=== PATIENT | male | born 1950 | race Caucasian/White ===

== ENCOUNTER 2022-03-31 13:35 | Outpatient (CLI) | payer MEDICARE | END 2022-03-31 13:36 | disposition home or self-care (01) | LOC: BICRAD 13:35 | PROVIDERS: ATTEND Podiatrist | DX: M19.072 Primary osteoarthritis, left ankle and foot (principal) ==

== ENCOUNTER 2023-11-02 05:55 | Day surgery (SDC) | payer MEDICARE ==
[2023-11-02] MEDS ORDERED: Lidocaine 1% (PF) 30 ML VIAL ONE (06:32)
[2023-11-02] MEDS ORDERED: PROPOFOL 40 ML ONE (06:34)
== END 2023-11-02 08:30 | disposition home or self-care (01) ==
LOC: SDC 05:55
PROVIDERS: ATTEND Internal Medicine Cardiovascular Disease
PROC: 5A2204Z Restoration of Cardiac Rhythm, Single (ICD-10-PCS; principal; 2023-11-02)
DX: I48.19 Other persistent atrial fibrillation (principal); Z95.0 Presence of cardiac pacemaker; Z79.01 Long term (current) use of anticoagulants; Z98.890 Other specified postprocedural states; I10 Essential (primary) hypertension; E78.2 Mixed hyperlipidemia; Z95.4 Presence of other heart-valve replacement; Z95.2 Presence of prosthetic heart valve
CPT/HCPCS: 92960; J2001; J2704